=== PATIENT | male | born 1965 | race Caucasian/White ===

== ENCOUNTER 2023-03-27 15:02 | Emergency (ER) | payer OTHER ==
[~2023-03-27] VITALS: Ht 170.2 cm; Wt 104.3 kg
[2023-03-27] MEDS ORDERED: [UNRECOGNIZED DRUG - OTHER] TD (16:54)
[2023-03-27 17:01] VITALS: BP 119/82
== END 2023-03-27 17:04 | disposition home or self-care (01) | DRG 556 ==
LOC: ED 15:02
DX: M25.521 Pain in right elbow (principal)